=== PATIENT | female | born 1945 | race Asian ===

== ENCOUNTER 2020-03-22 10:25 | Inpatient (IN) | payer OTHER, MEDICARE, MEDICAID, SELFPAY ==
[~2020-03-22] VITALS: Ht 149.9 cm; Wt 41.7 kg
[2020-03-22 10:25] VITALS: BP_SYST 120
[2020-03-22 12:51] LABS: BASOPHILS % (AUTO) 0.3 % (0.0-2.0); EOSINOPHILS # (AUTO) 0.1 K/uL (0.0-0.4); EOSINOPHILS % (AUTO) 1.6 % (0.0-4.0); HEMOGLOBIN 11.6 g/dL (12.0-16.0); LYMPHOCYTES # (AUTO) 0.5 K/uL (1.0-5.5); LYMPHOCYTES % (AUTO) 9.1 % (20.5-51.5); MEAN CORPUSCULAR HEMOGLOBIN 32 pg (27-31); MEAN CORPUSCULAR HGB CONC 33 % (32-36); MEAN CORPUSCULAR VOLUME 97 fL (79.0-98.0); MONOCYTES # (AUTO) 0.4 K/uL (0.0-1.0); MONOCYTES % (AUTO) 6.6 % (1.7-9.3); NEUTROPHILS # (AUTO) 4.6 K/uL (1.8-7.7); NEUTROPHILS % (AUTO) 82.4 % (40.0-70.0); PLATELET COUNT (AUTO) 187 K/uL (130-430); RED CELL DISTRIBUTION WIDTH 14.4 % (9.0-15.0); WHITE BLOOD COUNT (AUTO) 5.5 K/uL (4.8-10.8)
[2020-03-22] MEDS ORDERED: NS 250 ML IV ONE (13:00)
[2020-03-22 13:01] LABS: INR 0.9 (0.8-1.2); PROTHROMBIN TIME 9.5 SECS (9.5-12.5)
[2020-03-22 13:03] LABS: ANION GAP 14 (5-15); CALCIUM 7.9 mg/dL (8.4-11.0); CHLORIDE 101 mmol/L (98-107); GLUCOSE 156 mg/dL (70-99); POTASSIUM 3.5 mmol/L (3.5-5.1); SODIUM SERUM 140 mmol/L (136-145); UREA NITROGEN, BLOOD 97 mg/dL (8-21)
[2020-03-22 13:17] LABS: ALANINE AMINOTRANSFERASE 25 U/L (12-78); ALBUMIN 3.2 g/dL (3.4-4.8); ASPARTATE AMINOTRANSFERASE 26 U/L (10-37); BILIRUBIN,DIRECT 0.1 mg/dL (0.0-0.3); LIPASE 319 U/L (73-393); TOTAL BILIRUBIN 0.4 mg/dL (0.0-1.0)
[2020-03-22 13:19] LABS: CREATININE 8.09 mg/dL (0.55-1.30)
[2020-03-22 18:10] VITALS: BP_SYST 131
[2020-03-22] MEDS ORDERED: LAMO200T2 PO (18:29)
[2020-03-22] MEDS ORDERED: NEU100 PO (18:29)
[2020-03-22] MEDS ORDERED: FOLI-43 PO (18:29)
[2020-03-22] MEDS ORDERED: SUCR500T PO (18:29)
[2020-03-22] MEDS ORDERED: PRO40 PO (18:29)
[2020-03-22] MEDS ORDERED: LITH150C PO (18:29)
[2020-03-22] MEDS ORDERED: LACTULOSE PO (18:29)
[2020-03-22] MEDS ORDERED: LEVO25TA2 PO (18:29)
[2020-03-22] MEDS ORDERED: XALEYE OP (18:29)
[2020-03-22] MEDS ORDERED: OLAN15TA3 PO (18:29)
[2020-03-22] MEDS ORDERED: OMEP40CA13 PO (18:29)
[2020-03-22 20:00] VITALS: BP_SYST 128
[2020-03-22] MEDS: LamoTRIgine 100 MG TABLET PO SCH (20:30)
[2020-03-22] MEDS: OLANZapine 10 MG TABLET PO SCH (20:30)
[2020-03-22] MEDS: GABAPENTIN 100 MG CAPSULE PO SCH (20:30)
[2020-03-22] MEDS ORDERED: HEPARIN SODIUM,PORCINE 5,000 UNITS/ML VIAL IVP ONE ×2 (20:52→21:00)
[2020-03-22] MEDS: LATANOPROST 2.5 ML DROPS (XALATAN) OP SCH (21:00)
[2020-03-22] MEDS ORDERED: ALTEPLASE 2 MG VIAL MC ONE ×3 (22:11→22:43)
[2020-03-23] VITALS: BP_SYST 118
[2020-03-23] MEDS: LEVOTHYROXINE SODIUM 0.025 MG TABLET PO SCH (06:17)
[2020-03-23 07:22] LABS: BASOPHILS % (AUTO) 0.6 % (0.0-2.0); EOSINOPHILS # (AUTO) 0.1 K/uL (0.0-0.4); EOSINOPHILS % (AUTO) 3.3 % (0.0-4.0); HEMATOCRIT 32.4 % (36-48); HEMOGLOBIN 10.7 g/dL (12.0-16.0); LYMPHOCYTES # (AUTO) 0.7 K/uL (1.0-5.5); LYMPHOCYTES % (AUTO) 16.1 % (20.5-51.5); MEAN CORPUSCULAR HEMOGLOBIN 32 pg (27-31); MEAN CORPUSCULAR HGB CONC 33 % (32-36); MEAN CORPUSCULAR VOLUME 97 fL (79.0-98.0); MONOCYTES # (AUTO) 0.4 K/uL (0.0-1.0); MONOCYTES % (AUTO) 9.9 % (1.7-9.3); NEUTROPHILS # (AUTO) 2.9 K/uL (1.8-7.7); NEUTROPHILS % (AUTO) 70.1 % (40.0-70.0); PLATELET COUNT (AUTO) 154 K/uL (130-430); RED BLOOD CELL COUNT(AUTO) 3.33 MIL/uL (4.2-6.2); RED CELL DISTRIBUTION WIDTH 14.4 % (9.0-15.0); WHITE BLOOD COUNT (AUTO) 4.1 K/uL (4.8-10.8)
[2020-03-23 07:52] LABS: ALANINE AMINOTRANSFERASE 42 U/L (12-78); ALBUMIN 2.7 g/dL (3.4-4.8); ANION GAP 13 (5-15); ASPARTATE AMINOTRANSFERASE 53 U/L (10-37); CALCIUM 7.7 mg/dL (8.4-11.0); CHLORIDE 104 mmol/L (98-107); GLUCOSE 94 mg/dL (70-99); POTASSIUM 3.5 mmol/L (3.5-5.1); SODIUM SERUM 140 mmol/L (136-145); THYROID STIMULATING HORMONE 1.54 uIu/mL (0.36-3.74); TOTAL BILIRUBIN 0.3 mg/dL (0.0-1.0); UREA NITROGEN, BLOOD 65 mg/dL (8-21)
[2020-03-23 08:10] VITALS: BP_SYST 107
[2020-03-23] MEDS: GABAPENTIN 100 MG CAPSULE PO SCH ×3 (08:13→22:12)
[2020-03-23] MEDS: LITHIUM CARBONATE 150 MG CAPSULE PO SCH (08:13)
[2020-03-23] MEDS: LACTULOSE 20 GM/30 ML UDC PO SCH (08:13)
[2020-03-23] MEDS: FOLIC ACID 1 MG TABLET PO SCH (08:13)
[2020-03-23] MEDS: PANTOPRAZOLE SODIUM 40 MG TAB PO SCH (08:13)
[2020-03-23] MEDS: LamoTRIgine 100 MG TABLET PO SCH ×2 (08:13→22:11)
[2020-03-23 08:57] LABS: CHOLESTEROL 127 mg/dL (<200); HDL CHOLESTEROL 37 mg/dL (>55); LDL CHOLESTEROL 70 mg/dL (<100); TRIGLYCERIDES 136 mg/dL (30-150)
[2020-03-23] MEDS ORDERED: OMEPRAZOLE Non-Formulary 20 MG CAPSULE.DR PO SCH (09:00)
[2020-03-23] MEDS ORDERED: COMMUNICATION ORDER XX ONE (11:30)
[2020-03-23] MEDS ORDERED: HEPARIN SODIUM,PORCINE 5,000 UNITS/ML VIAL IVP ONE (11:30)
[2020-03-23] MEDS ORDERED: AMIODARONE HCL 200 MG TABLET PO ONE (12:00)
[2020-03-23 12:10] VITALS: BP_SYST 108
[2020-03-23 16:15] VITALS: BP_SYST 114
[2020-03-23 20:00] VITALS: BP_SYST 112
[2020-03-23] MEDS ORDERED: AMIODARONE HCL 200 MG TABLET PO SCH (22:00)
[2020-03-23] MEDS: LATANOPROST 2.5 ML DROPS (XALATAN) OP SCH (22:10)
[2020-03-23] MEDS: OLANZapine 10 MG TABLET PO SCH (22:12)
[2020-03-23] MEDS: AMIODARONE HCL 200 MG TABLET PO SCH (23:08)
[2020-03-24 01:40] VITALS: BP_SYST 97
[2020-03-24 04:00] VITALS: BP_SYST 109
[2020-03-24] MEDS: AMIODARONE HCL 200 MG TABLET PO SCH (06:00)
[2020-03-24] MEDS: LEVOTHYROXINE SODIUM 0.025 MG TABLET PO SCH (06:26)
[2020-03-24 07:01] LABS: BASOPHILS % (AUTO) 0.5 % (0.0-2.0); EOSINOPHILS # (AUTO) 0.1 K/uL (0.0-0.4); HEMATOCRIT 32.5 % (36-48); HEMOGLOBIN 10.8 g/dL (12.0-16.0); LYMPHOCYTES # (AUTO) 0.5 K/uL (1.0-5.5); LYMPHOCYTES % (AUTO) 8.2 % (20.5-51.5); MEAN CORPUSCULAR HEMOGLOBIN 32 pg (27-31); MEAN CORPUSCULAR HGB CONC 33 % (32-36); MEAN CORPUSCULAR VOLUME 97 fL (79.0-98.0); MONOCYTES # (AUTO) 0.6 K/uL (0.0-1.0); MONOCYTES % (AUTO) 9.8 % (1.7-9.3); NEUTROPHILS # (AUTO) 5.2 K/uL (1.8-7.7); NEUTROPHILS % (AUTO) 79.5 % (40.0-70.0); PLATELET COUNT (AUTO) 145 K/uL (130-430); RED BLOOD CELL COUNT(AUTO) 3.35 MIL/uL (4.2-6.2); RED CELL DISTRIBUTION WIDTH 14.1 % (9.0-15.0); WHITE BLOOD COUNT (AUTO) 6.6 K/uL (4.8-10.8)
[2020-03-24 07:38] LABS: ANION GAP 10 (5-15); CALCIUM 7.5 mg/dL (8.4-11.0); CHLORIDE 102 mmol/L (98-107); CREATININE 4.75 mg/dL (0.55-1.30); GLUCOSE 91 mg/dL (70-99); POTASSIUM 3.2 mmol/L (3.5-5.1); SODIUM SERUM 139 mmol/L (136-145); UREA NITROGEN, BLOOD 46 mg/dL (8-21)
[2020-03-24] MEDS: LACTULOSE 20 GM/30 ML UDC PO SCH ×2 (09:00→09:34)
[2020-03-24] MEDS: LITHIUM CARBONATE 150 MG CAPSULE PO SCH (09:33)
[2020-03-24] MEDS: GABAPENTIN 100 MG CAPSULE PO SCH ×3 (09:33→21:48)
[2020-03-24] MEDS: FOLIC ACID 1 MG TABLET PO SCH (09:33)
[2020-03-24] MEDS: LamoTRIgine 100 MG TABLET PO SCH ×2 (09:33→21:47)
[2020-03-24] MEDS: PANTOPRAZOLE SODIUM 40 MG TAB PO SCH (09:34)
[2020-03-24 09:43] VITALS: BP_SYST 82
[2020-03-24] MEDS ORDERED: NS 250 ML IV ONE (09:45)
[2020-03-24] MEDS: NACL 0.9% 1,000 ML IV SCH (11:14)
[2020-03-24 12:23] VITALS: BP_SYST 114
[2020-03-24 16:00] VITALS: BP_SYST 110
[2020-03-24 20:00] VITALS: BP_SYST 100
[2020-03-24] MEDS ORDERED: AMIODARONE HCL 200 MG TABLET PO SCH (21:00)
[2020-03-24] MEDS: LATANOPROST 2.5 ML DROPS (XALATAN) OP SCH (21:00)
[2020-03-24] MEDS: OLANZapine 10 MG TABLET PO SCH (21:48)
[2020-03-25] VITALS: BP_SYST 102
[2020-03-25] MEDS: LEVOTHYROXINE SODIUM 0.025 MG TABLET PO SCH (07:14)
[2020-03-25 08:18] VITALS: BP_SYST 137
[2020-03-25] MEDS: PANTOPRAZOLE SODIUM 40 MG TAB PO SCH (08:39)
[2020-03-25] MEDS: GABAPENTIN 100 MG CAPSULE PO SCH ×3 (08:39→20:52)
[2020-03-25] MEDS: LamoTRIgine 100 MG TABLET PO SCH ×2 (08:39→20:52)
[2020-03-25] MEDS: FOLIC ACID 1 MG TABLET PO SCH (08:40)
[2020-03-25] MEDS: LITHIUM CARBONATE 150 MG CAPSULE PO SCH (08:42)
[2020-03-25 11:01] VITALS: BP_SYST 113
[2020-03-25] MEDS ORDERED: HEPARIN SODIUM,PORCINE 5,000 UNITS/ML VIAL SUBCUT ONE (11:15)
[2020-03-25] MEDS ORDERED: HEPARIN SODIUM,PORCINE 5,000 UNITS/ML VIAL IVP ONE (12:45)
[2020-03-25 15:22] VITALS: BP_SYST 151
[2020-03-25 20:11] VITALS: BP_SYST 120
[2020-03-25] MEDS: OLANZapine 10 MG TABLET PO SCH (20:52)
[2020-03-25] MEDS: LATANOPROST 2.5 ML DROPS (XALATAN) OP SCH (21:00)
[2020-03-26 00:43] VITALS: BP_SYST 124
[2020-03-26] MEDS: LEVOTHYROXINE SODIUM 0.025 MG TABLET PO SCH (06:23)
[2020-03-26 07:15] LABS: BASOPHILS % (AUTO) 0.4 % (0.0-2.0); EOSINOPHILS # (AUTO) 0.1 K/uL (0.0-0.4); EOSINOPHILS % (AUTO) 1.9 % (0.0-4.0); HEMATOCRIT 27.3 % (36-48); HEMOGLOBIN 9.1 g/dL (12.0-16.0); LYMPHOCYTES # (AUTO) 0.9 K/uL (1.0-5.5); MEAN CORPUSCULAR HEMOGLOBIN 32 pg (27-31); MEAN CORPUSCULAR HGB CONC 33 % (32-36); MEAN CORPUSCULAR VOLUME 97 fL (79.0-98.0); MONOCYTES # (AUTO) 0.5 K/uL (0.0-1.0); MONOCYTES % (AUTO) 7.6 % (1.7-9.3); NEUTROPHILS # (AUTO) 5.4 K/uL (1.8-7.7); NEUTROPHILS % (AUTO) 77.1 % (40.0-70.0); PLATELET COUNT (AUTO) 160 K/uL (130-430); RED BLOOD CELL COUNT(AUTO) 2.83 MIL/uL (4.2-6.2); RED CELL DISTRIBUTION WIDTH 14.4 % (9.0-15.0)
[2020-03-26 08:08] LABS: ALANINE AMINOTRANSFERASE 39 U/L (12-78); ALBUMIN 2.6 g/dL (3.4-4.8); ANION GAP 10 (5-15); ASPARTATE AMINOTRANSFERASE 31 U/L (10-37); CALCIUM 8.1 mg/dL (8.4-11.0); CHLORIDE 100 mmol/L (98-107); CREATININE 4.99 mg/dL (0.55-1.30); GLUCOSE 97 mg/dL (70-99); POTASSIUM 3.3 mmol/L (3.5-5.1); SODIUM SERUM 141 mmol/L (136-145); TOTAL BILIRUBIN 0.4 mg/dL (0.0-1.0); UREA NITROGEN, BLOOD 50 mg/dL (8-21)
[2020-03-26 08:15] VITALS: BP_SYST 128
[2020-03-26] MEDS: LamoTRIgine 100 MG TABLET PO SCH (09:41)
[2020-03-26] MEDS: LACTULOSE 20 GM/30 ML UDC PO SCH (09:41)
[2020-03-26] MEDS: PANTOPRAZOLE SODIUM 40 MG TAB PO SCH (09:41)
[2020-03-26] MEDS: FOLIC ACID 1 MG TABLET PO SCH (09:41)
[2020-03-26] MEDS: LITHIUM CARBONATE 150 MG CAPSULE PO SCH (09:42)
[2020-03-26] MEDS: GABAPENTIN 100 MG CAPSULE PO SCH (09:42)
[2020-03-26 12:21] VITALS: BP_SYST 129
[2020-03-26 14:55] VITALS: BP_SYST 129
[2020-03-26] MEDS ORDERED: SUCROFERRIC OXYHYDROXIDE 500 MG PO SCH (18:00)
== END 2020-03-26 15:25 | DRG 308 ==
LOC: SED 10:25 → STU 13:40 → SMU 03-24 15:43
PROVIDERS: ADMIT Internal Medicine; ATTEND Internal Medicine
PROC: 5A1D70Z Performance of Urinary Filtration, Intermittent, Less than 6 Hours Per Day (ICD-10-PCS; principal; 2020-03-22)
PROC: 5A1D70Z Performance of Urinary Filtration, Intermittent, Less than 6 Hours Per Day (ICD-10-PCS; 2020-03-23)
PROC: 5A1D70Z Performance of Urinary Filtration, Intermittent, Less than 6 Hours Per Day (ICD-10-PCS; 2020-03-25)
DX: I48.92 Unspecified atrial flutter (principal); N18.6 End stage renal disease; E43 Unspecified severe protein-calorie malnutrition; I12.0 Hypertensive chronic kidney disease with stage 5 chronic kidney disease or end stage renal disease; Z68.1 Body mass index [BMI] 19.9 or less, adult; I95.9 Hypotension, unspecified; D63.8 Anemia in other chronic diseases classified elsewhere; J44.9 Chronic obstructive pulmonary disease, unspecified; J45.909 Unspecified asthma, uncomplicated; F29 Unspecified psychosis not due to a substance or known physiological condition; F31.9 Bipolar disorder, unspecified; Z93.1 Gastrostomy status; Z99.2 Dependence on renal dialysis; Z20.822 Contact with and (suspected) exposure to COVID-19
CPT/HCPCS: 36415; 71045; 80048; 80053; 80061; 80076; 80178-TC; 83605; 83690-TC; 83880; 84443-TC; 84484; 85025; 85379; 85610-TC; 87040-TC; 87081; 90935; 93005; 93306; 96360; 99285; G0378; J1644; J2997; J7030; J7040